=== PATIENT | female | born 1995 | race Two or more races ===

== ENCOUNTER 2023-01-26 13:32 | Emergency (ER) | payer OTHER ==
[~2023-01-26] VITALS: Ht 149.9 cm; Wt 57.6 kg
== END 2023-01-26 15:37 | disposition home or self-care (01) ==
LOC: ER 13:32
DX: H10.89 Other conjunctivitis (principal); S05.8X2A Other injuries of left eye and orbit, initial encounter; X58.XXXA Exposure to other specified factors, initial encounter; Y77.11 Contact lens associated with adverse incidents; Y92.89 Other specified places as the place of occurrence of the external cause; Y99.9 Unspecified external cause status